=== PATIENT | female | born 1935 | race Caucasian/White ===

== ENCOUNTER → 2016-09-15 | Outpatient (CLI) | payer MEDICARE, BC ==
[~2016-09-15] MED LIST: ALTACE 5MG5 MG PO; ASPIR-LOW81 MG PO; ASPIR-LOX325 MG PO; ASPIRIN 32325 MG/TAB PO; ASPIRIN 81M81 MG/TA2 PO; CARDIZEM 90MG T90 MG PO; CARDIZEM CD 18180 MG PO; CARDIZEM CD180 MG PO; CEFTIN500 MG PO; COREG 25MG25 MG/TAB PO; COREG12.5 MG PO; COZAAR 50MG50 MG/TAB PO; CYANOCOBAL1000 MCG/M IM; DIOVAN HCT PO; EPA/GLA1 SGL PO; FERROUS SU325 MG/TAB PO; FISH OIL500 MG PO; FOLIC ACID; FOLIC ACID 40400 MCG PO; GLUCOPHAGE1000 MG PO; LANTUS100 U/ML SQ; LEVEMIR FLEXPEN SC; LEVEMIR100 U/ML SQ; LUMIGAN EYE GTTS OU; MINOCYCLIN100 MG/CAP PO; NIACIN 250250 MG/CAP PO; NORCO 325 MG-51 TAB PO; NORCO 325 MG-7.1 TAB PO; OCUVITE1 TA1; OCUVITE1 TA1 PO; PRILOSEC 20MG20 MG PO; PROAIR HFA0.09 MG/AC IH; ROXICODONE 55 MG/TAB PO; SYNTHROID0.075 MG/T PO; TIAZAC360 MG PO; TIROSINT100 MC1 PO; TIROSINT100 MCG PO; VITAMIN B121000 MC2 SL; VITAMIN C250250 MG PO; VITAMIN C500 MG PO; XALATAN EYE DROPS OP
== END ==
LOC: MC.RAD 13:57
DX: Z12.31 Encounter for screening mammogram for malignant neoplasm of breast (principal); D24.2 Benign neoplasm of left breast; D24.1 Benign neoplasm of right breast

== ENCOUNTER 2017-09-06 14:45 | Outpatient (RCR) | payer MEDICARE, BC | END 2017-10-24 | disposition home or self-care (01) | LOC: MKS.ESL.PT | DX: M54.41 Lumbago with sciatica, right side (principal) | CPT/HCPCS: G0283-GP; G8978-GP; G8979-GP ==

== ENCOUNTER → 2017-11-08 | Outpatient (CLI) | payer MEDICARE, BC | LOC: MHCPAIN 12:21 | DX: G89.29 Other chronic pain (principal); M47.817 Spondylosis without myelopathy or radiculopathy, lumbosacral region; M53.3 Sacrococcygeal disorders, not elsewhere classified; M48.061 Spinal stenosis, lumbar region without neurogenic claudication | CPT/HCPCS: G0463 ==

== ENCOUNTER → 2017-11-30 | Outpatient (CLI) | payer MEDICARE, BC | LOC: MHCPAIN 12:37 | DX: M47.27 Other spondylosis with radiculopathy, lumbosacral region (principal); M43.16 Spondylolisthesis, lumbar region; M48.07 Spinal stenosis, lumbosacral region | CPT/HCPCS: J1100; Q9967 ==

== ENCOUNTER → 2017-12-13 | Outpatient (CLI) | payer MEDICARE, BC | LOC: MHCPAIN 14:14 | DX: G89.29 Other chronic pain (principal); M47.817 Spondylosis without myelopathy or radiculopathy, lumbosacral region; M54.16 Radiculopathy, lumbar region; M53.3 Sacrococcygeal disorders, not elsewhere classified; M48.061 Spinal stenosis, lumbar region without neurogenic claudication | CPT/HCPCS: G0463 ==

== ENCOUNTER → 2018-01-03 | Outpatient (CLI) | payer MEDICARE, BC | LOC: MHCPAIN 12:53 | DX: M47.817 Spondylosis without myelopathy or radiculopathy, lumbosacral region (principal); M48.061 Spinal stenosis, lumbar region without neurogenic claudication; M43.16 Spondylolisthesis, lumbar region | CPT/HCPCS: J1100; Q9967 ==

== ENCOUNTER → 2018-03-14 | Outpatient (CLI) | payer MEDICARE, BC | LOC: MHCPAIN 12:53 | DX: G89.29 Other chronic pain (principal); M47.817 Spondylosis without myelopathy or radiculopathy, lumbosacral region; M54.16 Radiculopathy, lumbar region; M53.3 Sacrococcygeal disorders, not elsewhere classified; M43.16 Spondylolisthesis, lumbar region | CPT/HCPCS: G0463 ==

== ENCOUNTER → 2018-04-18 | Outpatient (CLI) | payer MEDICARE, BC | LOC: MHCPAIN 13:53 | DX: G89.29 Other chronic pain (principal); M47.817 Spondylosis without myelopathy or radiculopathy, lumbosacral region; M54.16 Radiculopathy, lumbar region; M53.3 Sacrococcygeal disorders, not elsewhere classified; M48.00 Spinal stenosis, site unspecified; M43.16 Spondylolisthesis, lumbar region | CPT/HCPCS: G0463 ==

== ENCOUNTER → 2018-04-30 | Outpatient (CLI) | payer MEDICARE, BC | LOC: COL.RAD 07:24 | DX: K57.30 Diverticulosis of large intestine without perforation or abscess without bleeding (principal); M51.36 Other intervertebral disc degeneration, lumbar region; M46.96 Unspecified inflammatory spondylopathy, lumbar region; J84.10 Pulmonary fibrosis, unspecified; R91.1 Solitary pulmonary nodule; K86.2 Cyst of pancreas; Z96.643 Presence of artificial hip joint, bilateral | CPT/HCPCS: Q9967 ==

== ENCOUNTER 2018-05-29 08:32 | Day surgery (SDC) | payer MEDICARE, BC ==
[~2018-05-29] VITALS: Ht 162.6 cm; Wt 98.5 kg
[2018-05-29 08:51] VITALS: BP 161/71; PULSE 56; TEMP 97.8
[2018-05-29] MEDS ORDERED: COREG 25MG25 MG/TAB PO (09:34)
[2018-05-29] MEDS ORDERED: PRILOSEC 20MG20 MG PO (09:35)
[2018-05-29] MEDS ORDERED: TIAZAC180 MG PO (09:36)
[2018-05-29] MEDS ORDERED: SYNTHROID0.088 MG/T PO (09:36)
[2018-05-29] MEDS ORDERED: LEVEMIR100 U/ML SQ (09:37)
[2018-05-29] MEDS ORDERED: GLUCOPHAGE500 MG/TAB PO (09:38)
[2018-05-29] MEDS ORDERED: BENTYL 10MG10 MG/CAP PO (09:39)
[2018-05-29] MEDS ORDERED: GLUCOPHAGE1000 MG PO (09:39)
[2018-05-29] MEDS ORDERED: ASPIRIN 81M81 MG/TA2 PO (09:40)
[2018-05-29 10:50] VITALS: BP 123/56; PULSE 53; TEMP 98.1
[2018-05-29 11:05] VITALS: BP 110/78; PULSE 54
[2018-05-29 11:20] VITALS: BP 121/64; PULSE 48
== END 2018-05-29 11:32 | disposition home or self-care (01) ==
LOC: SDCO 08:32
DX: R10.31 Right lower quadrant pain (principal); K59.09 Other constipation; R19.7 Diarrhea, unspecified; Z86.010 Personal history of colon polyps; K57.90 Diverticulosis of intestine, part unspecified, without perforation or abscess without bleeding; K63.89 Other specified diseases of intestine
CPT/HCPCS: J2250; J3010; J7030

== ENCOUNTER → 2018-07-18 | Outpatient (CLI) | payer MEDICARE, BC ==
[~2018-07-18] MED LIST changes: +BENTYL 10MG10 MG/CAP PO; +GLUCOPHAGE500 MG/TAB PO; +SYNTHROID0.088 MG/T PO; +TIAZAC180 MG PO
== END ==
LOC: MHCPAIN 13:23
DX: G89.29 Other chronic pain (principal); M47.817 Spondylosis without myelopathy or radiculopathy, lumbosacral region; M53.3 Sacrococcygeal disorders, not elsewhere classified; M48.00 Spinal stenosis, site unspecified; M43.16 Spondylolisthesis, lumbar region
CPT/HCPCS: G0463

== ENCOUNTER → 2018-07-26 | Outpatient (CLI) | payer MEDICARE, BC | LOC: MHCPAIN 09:26 | DX: M47.817 Spondylosis without myelopathy or radiculopathy, lumbosacral region (principal); M54.16 Radiculopathy, lumbar region | CPT/HCPCS: J1100; Q9967 ==

== ENCOUNTER → 2018-10-23 | Outpatient (CLI) | payer MEDICARE, BC | LOC: MHCPAIN 13:12 | DX: G89.29 Other chronic pain (principal); M47.817 Spondylosis without myelopathy or radiculopathy, lumbosacral region; M54.16 Radiculopathy, lumbar region; M53.3 Sacrococcygeal disorders, not elsewhere classified; M48.061 Spinal stenosis, lumbar region without neurogenic claudication | CPT/HCPCS: G0463 ==

== ENCOUNTER 2018-12-30 04:32 | Inpatient (IN) | payer MEDICARE, BC ==
[2018-12-30] VITALS (849 sets, daily range): BP systolic 125–184; BP diastolic 69–86; PULSE 59–68; TEMP 94.6–98.8; O2SAT 85–100
[~2018-12-30] VITALS: Ht 160 cm; Wt 101.3 kg
[2018-12-30 04:56] LABS: BASO # 0.1 (0.0-0.2); BASO % 0.4 % (0.0-2.0); EOS # 0.5 (0.0-0.7); EOS % 3.7 % (0-4.0); GRAN # 9.8 (1.4-6.5); GRAN % 68.3 % (42.2-75.2); HEMATOCRIT 41.5 % (37.0-47.0); HEMOGLOBIN 13.4 g/dl (12.5-16.0); LYMPH # 2.7 (1.2-3.4); LYMPH % 18.9 % (20.0-51.0); MEAN CELL VOLUME 90 fl (80.0-100.0); MEAN CORPUSCULAR HEMOGLOBIN 29 pg (27.0-31.0); MEAN CORPUSCULAR HGB CONC 32 g/dl (33.0-37.0); MEAN PLATELET VOLUME 10.6 fl (7.4-10.4); MONO # 1.2 (0.1-0.6); MONO % 8.1 % (1.7-9.3); PLATELET COUNT 325 K/mm3 (130-400); RED BLOOD COUNT 4.62 M/mm3 (4.10-5.30); REDCELL DISTRIBUTION WIDTH-CV 13.7 % (11.5-14.5)
[2018-12-30 05:01] LABS: INR 0.9 (0.8-3.0); PROTHROMBIN TIME 10.8 SECONDS (9.7-12.8)
[2018-12-30 05:04] LABS: PARTIAL THROMBOPLASTIN TIME 36.9 SECONDS (26.0-37.0)
[2018-12-30 05:16] LABS: ALANINE AMINOTRANSFERASE 19 U/L (9-52); ALBUMIN 4.5 gm/dL (3.5-5.0); ALKALINE PHOSPHATASE 76 U/L (50-136); ANION GAP 12 mmol/L (7-16); AST,SGOT 23 U/L (15-37); BILIRUBIN,TOTAL 0.3 mg/dL (0.0-1.0); BLOOD UREA NITROGEN 23 mg/dL (7-17); CALCIUM 10.5 mg/dL (8.4-10.2); CARBON DIOXIDE 22 mmol/L (22-30); CHLORIDE 111 mmol/L (98-107); CREATININE, serum 0.79 (0.52-1.25); GLUCOSE 52 mg/dL (74-106); POTASSIUM 3.9 mmol/L (3.4-5.0); SODIUM 145 mmol/L (137-145); TOTAL PROTEIN 8.2 gm/dL (6.4-8.2)
[2018-12-30] MEDS ORDERED: MOBIC15 MG PO (05:16)
[2018-12-30] MEDS ORDERED: PEPCID40 MG PO (05:16)
[2018-12-30 05:40] LABS: TROPONIN-I < 0.012 ng/mL (0.000-0.035)
[2018-12-30 05:46] LABS: THYROID STIMULATING HORMONE 0.949 uIU/mL (0.465-4.680)
[2018-12-30 06:53] LABS: COLLECTION METHOD CLEAN CATCH
[2018-12-30 06:59] LABS: MUCOUS Present /lpf; PH 5 (5-8); SQUAMOUS EPITHELIAL 0-2 /hpf; URINE APPEARANCE Clear; URINE BACTERIA None Seen /hpf; URINE BILIRUBIN Negative (NEGATIVE); URINE BLOOD Negative (NEGATIVE); URINE COLOR Yellow; URINE GLUCOSE 1+ (NEGATIVE); URINE KETONE Negative (NEGATIVE); URINE LEUKOCYTE ESTERASE Negative (NEGATIVE); URINE NITRATE Negative (NEGATIVE); URINE PROTEIN(semi-quant) Negative (NEGATIVE); URINE RBC 0-2 /hpf; URINE UROBILINOGEN Negative (NEGATIVE)
--- NOTE | 2018-12-30 07:55 | NUR ---
Patient admitted to ICU 2 from ED via stretcher. Moves self to bed. Alert/[place] x4. Denies needs at this time. [place] to room. Call light at side
[2018-12-30 08:14] LABS: CHOLESTEROL RISK RATIO 5.1
--- NOTE | 2018-12-30 08:30 | NUR ---
Capo warming blankets applied to patient, bilat knees and chest. BS checked. Dr. Fox here at bedside for rounds, new orders recieved at this time. Temp 35.1 per temp ingrid. WIll monitor.
--- NOTE | 2018-12-30 12:00 | NUR ---
Temp quintero shows temp 37.1, verified orally. Gaymar unit off at this time. 1230-temp remains WNL, wraps removed and covered with blanket. Will continue to monitor for hypothermia. Continue with BG checks as well. Patient continues to be A/O. Has eaten, and enc PO fluids. Denies further needs
[2018-12-30] MEDS ORDERED: PEPCID 20MG TAB20 MG PO (12:12)
[2018-12-30] MEDS ORDERED: OMEGA-3 1000 MG1 CAP PO (12:13)
[2018-12-30] MEDS ORDERED: GLUCOPHAGE500 MG/TAB PO ×2 (12:15→12:17)
--- NOTE | 2018-12-30 17:49 | NUR ---
Karl Branch APRN notified of increased BP. Request this RN to call Cardiology for orders. Updates given. 1756 Dr. Castillo notified of BP, orders recived.
--- NOTE | 2018-12-30 19:29 | NUR ---
Bedside report given to Pam BROOKS. Patient awake and alert, denies needs at this time.
--- NOTE | 2018-12-30 20:00 | NUR ---
Pt A&O x4, sitting in bed, denies any pain, VSS.
--- NOTE | 2018-12-30 23:50 | NUR ---
Pt states she's having difficulty sleeping. SCD's remain off and lights turned off to help pt get to sleep.
[2018-12-31] VITALS (92 sets, daily range): BP systolic 134–167; BP diastolic 62–83; PULSE 54–69; TEMP 97.8–98.6; O2SAT 94–100
[2018-12-31 05:18] LABS: ALBUMIN 3.2 gm/dL (3.5-5.0); BILIRUBIN,TOTAL 0.4 mg/dL (0.0-1.0); CALCIUM 8.9 mg/dL (8.4-10.2); CREATININE, serum 0.62 (0.52-1.25); POTASSIUM 4.1 mmol/L (3.4-5.0)
[2018-12-31 05:21] LABS: BASO % 0.2 % (0.0-2.0); EOS # 0.3 (0.0-0.7); EOS % 3.5 % (0-4.0); GRAN # 6.3 (1.4-6.5); GRAN % 66.6 % (42.2-75.2); HEMOGLOBIN 11.9 g/dl (12.5-16.0); LYMPH % 20.7 % (20.0-51.0); MEAN CELL VOLUME 88 fl (80.0-100.0); MEAN CORPUSCULAR HEMOGLOBIN 29 pg (27.0-31.0); MEAN CORPUSCULAR HGB CONC 33 g/dl (33.0-37.0); MEAN PLATELET VOLUME 10.9 fl (7.4-10.4); MONO # 0.8 (0.1-0.6); MONO % 8.8 % (1.7-9.3); PLATELET COUNT 252 K/mm3 (130-400); REDCELL DISTRIBUTION WIDTH-CV 13.7 % (11.5-14.5)
[2018-12-31 05:22] LABS: HEMATOCRIT 36.1 % (37.0-47.0)
--- NOTE | 2018-12-31 07:20 | NUR ---
Report recieved from Pam BROOKS. Patient sleeps at this time. Offers no s/s discomfort.
--- NOTE | 2018-12-31 07:50 | NUR ---
chemistry technologist at bedside for exam, patient tolerating well. Continues with K[place] veras 36.7/98.1. States "I sure feel better today."
--- NOTE | 2018-12-31 09:09 | NUR ---
SW met with the patient to discuss a discharge plan. The pt lives in [place] with her Mu. The pt does not use DME and reports independence with ADLs. The pt's PCP is Dr. Jackson. The pt receives her medications from [facility] and reports no difficulties obtaining her medications. The pt does have advanced directives in the EMR, but they are incomplete. SW to meet with the pt again to discuss advanced directives. The pt plans to return home upon discharge. SW will continue to follow for discharge recommendations and assist if needed.
--- NOTE | 2018-12-31 09:39 | NUR ---
Initial visit; Patient thanked Blending Machine Feeder for looking in on her and offering spiritual care and was especially thankful for prayer.
--- NOTE | 2018-12-31 19:00 | NUR ---
Report received from Paulette Fam RN. Pt resting in chair with visitor X1 at bedside and television on.
--- NOTE | 2018-12-31 19:15 | NUR ---
Report given to Manisha BROOKS
--- NOTE | 2018-12-31 20:00 | NUR ---
Pt assessment completed. Pt remains in chair at bedside. Verbal expression was made by pt to go upstairs this evening "because of the toilet in the middle of the room". Telemetry box was placed at this time with the assurance that this pt was the first to go upstairs this evening although an exact time is unknown. Pt reported bruising on right shoulder was caused by a Vitamin B injection.
--- NOTE | 2018-12-31 21:21 | NUR ---
Report received from Manisha BROOKS.
--- NOTE | 2018-12-31 21:25 | NUR ---
Phone report provided to Neida on medical floor.
--- NOTE | 2018-12-31 21:40 | NUR ---
Pt assisted with personal belongings off unit in a wheelchair by medical floor nurse Neida at this time.
--- NOTE | 2018-12-31 21:40 | NUR ---
Pt transported to medical bed via wheelchair with belongings. Pt amublated with standby assist from wheelchair to bed. Well tolerated by patient. Patients assessment is within normal limits. Respirations even and unlabored. Lungs clear. Abdomen soft, nontender. BS+. No edema noted. Pulses equal, strong bilaterally. VSS. Pt denies pain. Pt tucked into bed. Call light in reach. No needs noted. Will continue to monitor.
--- NOTE | 2018-12-31 23:20 | NUR ---
Patient ambulated into the hedrick and stated that her call light and bed was working. It was determined that the call light and bed were not functional. different call light tried which did not work either.
--- NOTE | 2018-12-31 23:30 | NUR ---
Pt is moved from room 311 to room 318 for patient safety. Call light in 318 is functional.
[2019-01-01 03:40] VITALS: BP 144/59; PULSE 60; TEMP 98.4
--- NOTE | 2019-01-01 03:40 | NUR ---
Pt resting in bed. Pt reports improvement in back pain with Tylenol. Pts blood sugar stable. VSS.
--- NOTE | 2019-01-01 06:02 | NUR ---
Pt resting this morning. Pt has had c/o back pain since coming to medical floor. Pt has chronic back issues and home Mobic is on hold. PRN Tylenol given. No other needs noted.
[2019-01-01 08:41] VITALS: BP 146/66; PULSE 60; TEMP 98.1
--- NOTE | 2019-01-01 10:52 | NUR ---
Completed assessment and medication administration; Accu-check completed late with aftermeal reading of 220; PT A&Ox4, HRRR, lungs CTA, PT offered prune juice to assist with full bowel movement; PT able to communicate all concerns and needs; PT reports mild LBP and not able to have a full bowel movement; PT able to return to a comfortable position in recliner with personal items in bed and call light within reach; No further concerns at time of exit. CDA
[2019-01-01] MEDS ORDERED: LEVEMIR100 U/ML SQ (11:26)
--- NOTE | 2019-01-01 13:42 | NUR ---
SW attended clinical rounds. Patient has been walking in the halls independently with her family. Patient does not require any home health services or post acute rehab. Patient will discharge home today.
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
--- NOTE | 2019-01-01 15:27 | NUR ---
PT and family escorted out of the building via wheelchair with aide staff. SHE[place]
== END 2019-01-01 15:15 | disposition home or self-care (01) | DRG 639 ==
LOC: COL.ER 04:32 → ICU 05:50 → MEDICAL 12-31 21:40
PROVIDERS: Emergency Medicine; Nurse Practitioner; ADMIT Hospitalist
DX: E11.649 Type 2 diabetes mellitus with hypoglycemia without coma (principal); I10 Essential (primary) hypertension; E03.9 Hypothyroidism, unspecified; F45.8 Other somatoform disorders; R68.0 Hypothermia, not associated with low environmental temperature; I44.0 Atrioventricular block, first degree; K21.9 Gastro-esophageal reflux disease without esophagitis; E78.5 Hyperlipidemia, unspecified; Z79.84 Long term (current) use of oral hypoglycemic drugs; Z79.82 Long term (current) use of aspirin; Z96.653 Presence of artificial knee joint, bilateral; Z96.641 Presence of right artificial hip joint; Z96.698 Presence of other orthopedic joint implants; Z88.3 Allergy status to other anti-infective agents
CPT/HCPCS: 99223-AI; 99232-AI; 99239; J1650; J1815; J7030

== ENCOUNTER → 2019-01-30 | Outpatient (CLI) | payer MEDICARE, BC ==
[~2019-01-30] MED LIST changes: +MOBIC15 MG PO; +OMEGA-3 1000 MG1 CAP PO; +PEPCID 20MG TAB20 MG PO; +PEPCID40 MG PO
== END ==
LOC: MHCPAIN 14:20
DX: G89.29 Other chronic pain (principal); M47.817 Spondylosis without myelopathy or radiculopathy, lumbosacral region; M54.16 Radiculopathy, lumbar region; M53.3 Sacrococcygeal disorders, not elsewhere classified; M48.01 Spinal stenosis, occipito-atlanto-axial region
CPT/HCPCS: G0463

== ENCOUNTER → 2019-02-07 | Outpatient (CLI) | payer MEDICARE, BC | LOC: MHCPAIN 14:00 | DX: M47.817 Spondylosis without myelopathy or radiculopathy, lumbosacral region (principal); M54.16 Radiculopathy, lumbar region | CPT/HCPCS: J1100; Q9967 ==

== ENCOUNTER 2019-02-28 13:22 | Emergency (ER) | payer MEDICARE, BC ==
[~2019-02-28] VITALS: Ht 162.6 cm; Wt 97.7 kg
[2019-02-28 13:30] VITALS: TEMP 97.9
[2019-02-28] MEDS ORDERED: NORCO 325 MG-51 TAB PO (14:09)
[2019-02-28] MEDS ORDERED: NEURONTIN300 MG/CAP PO (14:09)
[2019-02-28] MEDS ORDERED: LIDODERM 5% PATC1 EA TP (14:09)
[2019-02-28] MEDS ORDERED: PREDNISONE20 MG PO (14:09)
[2019-02-28 14:33] VITALS: BP 155/63; PULSE 78
== END 2019-02-28 14:44 | disposition home or self-care (01) ==
LOC: COL.ER 13:22
DX: M54.5 Low back pain (principal); E11.9 Type 2 diabetes mellitus without complications; I10 Essential (primary) hypertension; Z90.89 Acquired absence of other organs; Z79.82 Long term (current) use of aspirin

== ENCOUNTER 2019-03-07 15:07 | Emergency (ER) | payer MEDICARE, BC ==
[~2019-03-07] VITALS: Ht 162.6 cm; Wt 100.0 kg
[~2019-03-07 15:07] MED LIST changes: +LIDODERM 5% PATC1 EA TP; +NEURONTIN300 MG/CAP PO; +PREDNISONE20 MG PO
[2019-03-07 15:26] VITALS: TEMP 97.9
[2019-03-07 18:26] LABS: ALANINE AMINOTRANSFERASE 10 U/L (9-52); ALBUMIN 4.4 gm/dL (3.5-5.0); ALKALINE PHOSPHATASE 69 U/L (50-136); ANION GAP 13 mmol/L (7-16); AST,SGOT 20 U/L (15-37); BILIRUBIN,TOTAL 0.2 mg/dL (0.0-1.0); BLOOD UREA NITROGEN 23 mg/dL (7-17); CALCIUM 9.9 mg/dL (8.4-10.2); CARBON DIOXIDE 21 mmol/L (22-30); CHLORIDE 104 mmol/L (98-107); GLUCOSE 155 mg/dL (74-106); POTASSIUM 4.5 mmol/L (3.4-5.0); SODIUM 138 mmol/L (137-145); TOTAL PROTEIN 7.5 gm/dL (6.4-8.2)
[2019-03-07 18:27] LABS: BASO % 0.2 % (0.0-2.0); EOS # 0.2 (0.0-0.7); EOS % 1.5 % (0-4.0); GRAN # 10.2 (1.4-6.5); GRAN % 74.5 % (42.2-75.2); HEMATOCRIT 41.8 % (37.0-47.0); HEMOGLOBIN 13.7 g/dl (12.5-16.0); LYMPH # 2.3 (1.2-3.4); LYMPH % 16.8 % (20.0-51.0); MEAN CELL VOLUME 90 fl (80.0-100.0); MEAN CORPUSCULAR HEMOGLOBIN 29 pg (27.0-31.0); MEAN CORPUSCULAR HGB CONC 33 g/dl (33.0-37.0); MONO # 0.9 (0.1-0.6); MONO % 6.3 % (1.7-9.3); PLATELET COUNT 366 K/mm3 (130-400); RED BLOOD COUNT 4.67 M/mm3 (4.10-5.30); REDCELL DISTRIBUTION WIDTH-CV 14.4 % (11.5-14.5)
[2019-03-07 18:31] LABS: C-REACTIVE PROTEIN 0.5 mg/dL (0.0-0.9)
[2019-03-07 18:35] LABS: TROPONIN-I < 0.012 ng/mL (0.000-0.035)
[2019-03-07 19:05] LABS: COLLECTION METHOD CLEAN CATCH
[2019-03-07 19:12] LABS: MUCOUS Present /lpf; PH 5 (5-8); URINE APPEARANCE Hazy; URINE BACTERIA Rare /hpf; URINE BILIRUBIN Negative (NEGATIVE); URINE BLOOD Negative (NEGATIVE); URINE COLOR Yellow; URINE GLUCOSE Negative (NEGATIVE); URINE KETONE Negative (NEGATIVE); URINE LEUKOCYTE ESTERASE Negative (NEGATIVE); URINE NITRATE Negative (NEGATIVE); URINE PROTEIN(semi-quant) Negative (NEGATIVE); URINE RBC 0-2 /hpf; URINE UROBILINOGEN Negative (NEGATIVE)
[2019-03-07] MEDS ORDERED: NORCO 325 MG-51 TAB PO (20:32)
[2019-03-07 21:06] VITALS: BP 138/90; PULSE 78
== END 2019-03-07 22:52 | disposition home or self-care (01) ==
LOC: COL.ER 15:07
PROVIDERS: Nurse Practitioner
DX: M25.562 Pain in left knee (principal); E11.9 Type 2 diabetes mellitus without complications; I10 Essential (primary) hypertension; E03.9 Hypothyroidism, unspecified; Z79.4 Long term (current) use of insulin; Z79.82 Long term (current) use of aspirin
CPT/HCPCS: J2270

== ENCOUNTER → 2019-03-11 | Outpatient (CLI) | payer MEDICARE, BC | LOC: MHCPAIN 14:54 | DX: G89.29 Other chronic pain (principal); M47.817 Spondylosis without myelopathy or radiculopathy, lumbosacral region; M54.16 Radiculopathy, lumbar region; M53.3 Sacrococcygeal disorders, not elsewhere classified; M48.061 Spinal stenosis, lumbar region without neurogenic claudication | CPT/HCPCS: G0463 ==

== ENCOUNTER → 2019-03-14 | Outpatient (CLI) | payer MEDICARE, BC | LOC: MHCPAIN 11:24 | DX: M47.817 Spondylosis without myelopathy or radiculopathy, lumbosacral region (principal); M54.16 Radiculopathy, lumbar region | CPT/HCPCS: J1100; Q9967 ==

== ENCOUNTER → 2019-03-27 | Outpatient (CLI) | payer MEDICARE, BC | LOC: MHCPAIN 13:33 | DX: G89.29 Other chronic pain (principal); M47.817 Spondylosis without myelopathy or radiculopathy, lumbosacral region; M54.16 Radiculopathy, lumbar region; M53.3 Sacrococcygeal disorders, not elsewhere classified | CPT/HCPCS: G0463 ==

== ENCOUNTER → 2019-04-02 | Outpatient (CLI) | payer MEDICARE, BC | LOC: COL.RAD 08:40 | DX: M25.552 Pain in left hip (principal) | CPT/HCPCS: J3301 ==

== ENCOUNTER → 2019-06-26 | Outpatient (CLI) | payer MEDICARE, BC | LOC: MHCPAIN 13:55 | DX: M47.817 Spondylosis without myelopathy or radiculopathy, lumbosacral region (principal); M54.16 Radiculopathy, lumbar region | CPT/HCPCS: G0463 ==

== ENCOUNTER → 2019-07-16 | Outpatient (CLI) | payer MEDICARE, BC | LOC: COL.RAD 10:00 | DX: M48.061 Spinal stenosis, lumbar region without neurogenic claudication (principal); M51.36 Other intervertebral disc degeneration, lumbar region; M43.16 Spondylolisthesis, lumbar region; M46.86 Other specified inflammatory spondylopathies, lumbar region; M47.817 Spondylosis without myelopathy or radiculopathy, lumbosacral region ==

== ENCOUNTER 2019-07-23 09:15 | Outpatient (RCR) | payer MEDICARE, BC | END 2019-07-23 16:49 | disposition home or self-care (01) | LOC: WSPT 09:15 | DX: M47.26 Other spondylosis with radiculopathy, lumbar region (principal) ==

== ENCOUNTER 2020-09-27 11:41 | Inpatient (IN) | payer MEDICARE, BC ==
[~2020-09-27] VITALS: Ht 162.7 cm; Wt 96.3 kg
[~2020-09-27 11:41] MED LIST changes: -OCUVITE1 TA1
[2020-09-27 12:39] LABS: BASO # 0.1 (0.0-0.2); BASO % 0.6 % (0.0-2.0); EOS # 0.2 (0.0-0.7); EOS % 2.5 % (0-4.0); GRAN % 73.1 % (42.2-75.2); HEMATOCRIT 37.2 % (37.0-47.0); HEMOGLOBIN 12.1 g/dl (12.5-16.0); LYMPH # 1.5 (1.2-3.4); MEAN CELL VOLUME 90 fl (80.0-100.0); MEAN CORPUSCULAR HEMOGLOBIN 29 pg (27.0-31.0); MEAN CORPUSCULAR HGB CONC 33 g/dl (33.0-37.0); MEAN PLATELET VOLUME 10.5 fl (7.4-10.4); MONO # 0.7 (0.1-0.6); MONO % 7.3 % (1.7-9.3); PLATELET COUNT 312 K/mm3 (130-400); RED BLOOD COUNT 4.15 M/mm3 (4.10-5.30); REDCELL DISTRIBUTION WIDTH-CV 13.3 % (11.5-14.5)
[2020-09-27 12:44] LABS: PROTHROMBIN TIME 11.2 SECONDS (9.7-12.8)
[2020-09-27 12:47] LABS: ALANINE AMINOTRANSFERASE 23 U/L (4-34); ALKALINE PHOSPHATASE 62 U/L (50-136); ANION GAP 11 mmol/L (7-16); AST,SGOT 26 U/L (15-37); BILIRUBIN,TOTAL 0.5 mg/dL (0.0-1.0); BLOOD UREA NITROGEN 17 mg/dL (7-17); CALCIUM 9.2 mg/dL (8.4-10.2); CARBON DIOXIDE 17 mmol/L (22-30); CHLORIDE 108 mmol/L (98-107); CREATININE, serum 0.68 (0.52-1.25); GLUCOSE 151 mg/dL (74-106); POTASSIUM 4.1 mmol/L (3.4-5.0); SODIUM 135 mmol/L (137-145)
[2020-09-27 12:58] LABS: TROPONIN-I < 0.012 ng/mL (0.000-0.035)
[2020-09-27] MEDS ORDERED: BENICAR 20MG TA20 MG PO (13:50)
[2020-09-27] MEDS ORDERED: ULTRAM 50MG TAB50 MG PO (13:51)
[2020-09-27] MEDS ORDERED: GLUCOPHAGE500 MG/TAB PO ×2 (13:51→13:52)
[2020-09-27 15:17] VITALS: BP 145/61; PULSE 57; TEMP 97.8
--- NOTE | 2020-09-27 15:34 | NUR ---
Pt admitted to medical unit rm 351 from ED, A&O x 4, reports slight chest pressure that is improved from arrival. IVF's infusing by gravity through right AC site without s/s of complications. POC and visitor policy reviewed with pt and pt's [id number] who is at bedside. No further needs reported. Call light in reach.
[2020-09-27] MEDS ORDERED: NEURONTIN300 MG/CAP PO (16:12)
--- NOTE | 2020-09-27 19:10 | NUR ---
Report with TODD Barboza. Pt resting in bed, verbalizes understanding of POC, denies further needs. Call light in reach.
--- NOTE | 2020-09-27 20:30 | NUR ---
Initial shift assessment done- denies chest pain, denies SOB, IV fluids of NS at 30cc/hr,,Tele on, Up to bathroom with one assist-tolerated well, gait steady, voiding without problems,, will have a blood sugar check tonight, states will eat a small snack for HS-- will then be NPO after MN for lexiscan in AM
[2020-09-27 20:52] VITALS: BP 151/61; PULSE 61; TEMP 97.4
--- NOTE | 2020-09-27 21:15 | NUR ---
Blood sugar 151, will give the Levimir as ordered, pt did eat a small HS snack- pt will be NPO after MN so did not think the short acting was necessary- she does not take it at home-
[2020-09-28] VITALS (13 sets, daily range): BP systolic 130–165; BP diastolic 60–90; PULSE 59–98; TEMP 97.4–98.3
--- NOTE | 2020-09-28 05:40 | NUR ---
Quiet night- no chest pain-- did sleep for a few hours, Up to bathroom every 2 hours to void- IV fluids of NS at 30cc/hr,, Tele on, NPO since ZAINA,VSS
[2020-09-28 06:26] LABS: TROPONIN-I < 0.012 ng/mL (0.000-0.035)
[2020-09-28 06:27] LABS: ANION GAP 8 mmol/L (7-16); BLOOD UREA NITROGEN 12 mg/dL (7-17); CARBON DIOXIDE 21 mmol/L (22-30); CHLORIDE 110 mmol/L (98-107); CHOLESTEROL 206 mg/dL (120-200); CREATININE, serum 0.66 (0.52-1.25); GLUCOSE 138 mg/dL (74-106); HDL CHOLESTEROL 41 mg/dL; LDL CHOLESTEROL 138 mg/dL; MAGNESIUM 1.9 mg/dL (1.6-2.3); SODIUM 139 mmol/L (137-145); TRIGLYCERIDE 133 mg/dL
--- NOTE | 2020-09-28 09:25 | NUR ---
NPO THIS AM FOR NUC MED. STILL HAS C/O "TIGHTNESS" AROUND MIDSECTION RATING AT 2/10. IVF AND TELE OFF WHEN LEAVING FLOOR - OFF FLOOR AT 0900 TO NUCLEAR MED
--- NOTE | 2020-09-28 10:35 | NUR ---
PATIENT BACK TO ROOM.
--- NOTE | 2020-09-28 14:07 | NUR ---
Weight Training Instructor met with patient to discuss discharge planning. Patient lives outside of [place] with her , Mu (ph#[phone]). Patient sees Dr. Jackson for primary care and obtains medications from [facility] with no difficulties. Patient uses a walker at home and a cane when she's out in the community. Patient reports she is normally independent with ADLS and plans to return home upon discharge. Patient has Advance Directives in EMR which designate her son, Javy (ph#[phone]). SW contacted Javy to review discharge plan. Javy has no questions or concerns at this time.
--- NOTE | 2020-09-28 17:10 | NUR ---
PATIENT HEART CATH POSTPONED TO 09/29; DIET REINSTATED FOR DINNER, NPO AFTER MN. PATIENT INFORMED AND DINNER ORDERED. N/C OR NEEDS AT THIS TIME
--- NOTE | 2020-09-28 19:05 | NUR ---
Received report from Brandi. Patient awake in bed. She just came back from the restroom. She denies pain. Informed patient of NPO by midight. She verbalizes understanding.
--- NOTE | 2020-09-28 20:30 | NUR ---
Assesment done. Patient denies pain. Blood glucose at 166mg/dl. Offered patient if she wants some snacks before she sleeps just to prevent hypoglycemia in the morning, she said she received snacks last night and wants to have tonight at 2200H. With IV on right AC infusing NS at 30ml/hr.
[2020-09-29] VITALS (176 sets, daily range): BP systolic 121–153; BP diastolic 63–88; PULSE 58–71; TEMP 97.8–98.1; O2SAT 88–97
--- NOTE | 2020-09-29 06:06 | NUR ---
Patient reports able to sleep a bit. She states she still have chest tightness but tolerable. Maintained on NPO. Morning med given with sips of water.
--- NOTE | 2020-09-29 07:10 | NUR ---
Report with TODD Carmen. Pt resting in bed, A&O x 3, denies pain or needs, verbalizes understanding of POC. IVF's infusing per orders. Call light in reach.
--- NOTE | 2020-09-29 08:15 | NUR ---
Assessment complete. Pt sitting up on side of bed, A&O x 4, reports continued slight pressure to chest. IVF's infusing per orders to right AC site without s/s of complications. POC for procedure reviewed with pt. Pt emotional d/t concerns about her at home by himself. Pt does have a son who is checking on him but she is ready to get back home to him. No further needs reported. Call light in reach.
--- NOTE | 2020-09-29 10:00 | NUR ---
Pt to canvas shop laborer for procedure via bed.
[2020-09-29 16:09] LABS: PARTIAL THROMBOPLASTIN TIME 49.2 SECONDS (26.0-37.0)
--- NOTE | 2020-09-29 17:11 | NUR ---
PT being transferred via [facility] to . Report given to early childhood specialist. 9ml of air left in TR band and 40 cc left in safe guard on right groin. PT is alert and oriented with out complaint. PT left unit at 1711.
== END 2020-09-29 17:11 | disposition short-term general hospital (02) | DRG 287 ==
LOC: COL.ER 11:41 → MEDICAL 14:39 → ICU 09-29 14:48
PROVIDERS: Physician Assistant; ADMIT Internal Medicine
PROC: B2111ZZ Fluoroscopy of Multiple Coronary Arteries using Low Osmolar Contrast (ICD-10-PCS; 2020-09-28)
PROC: 4A023N7 Measurement of Cardiac Sampling and Pressure, Left Heart, Percutaneous Approach (ICD-10-PCS; principal; 2020-09-29)
DX: I25.110 Atherosclerotic heart disease of native coronary artery with unstable angina pectoris (principal); E87.2 Acidosis; I50.32 Chronic diastolic (congestive) heart failure; I11.0 Hypertensive heart disease with heart failure; E11.9 Type 2 diabetes mellitus without complications; E03.9 Hypothyroidism, unspecified; K21.9 Gastro-esophageal reflux disease without esophagitis; E78.5 Hyperlipidemia, unspecified; Z20.822 Contact with and (suspected) exposure to COVID-19; Z96.653 Presence of artificial knee joint, bilateral; Z96.641 Presence of right artificial hip joint; Z79.82 Long term (current) use of aspirin; Z79.891 Long term (current) use of opiate analgesic; Z79.4 Long term (current) use of insulin; Z88.8 Allergy status to other drugs, medicaments and biological substances
CPT/HCPCS: OP; 99239; A9500; C1760; C1769; C1887; C1894; G0378; J0583; J1644; J1650; J1815; J2250; J2270; J2785; J3010; J7030; Q9967

== ENCOUNTER 2020-10-12 02:18 | Observation (INO) | payer MEDICARE, BC ==
[2020-10-12] VITALS (259 sets, daily range): BP systolic 113–140; BP diastolic 50–87; PULSE 62–74; TEMP 98–98.7; O2SAT 93–99
[~2020-10-12] VITALS: Ht 162.6 cm; Wt 95.0 kg
[~2020-10-12 02:18] MED LIST changes: +BENICAR 20MG TA20 MG PO; +ULTRAM 50MG TAB50 MG PO
[2020-10-12 02:39] LABS: BASO # 0.1 (0.0-0.2); BASO % 0.5 % (0.0-2.0); EOS # 0.5 (0.0-0.7); GRAN # 6.1 (1.4-6.5); LYMPH # 1.9 (1.2-3.4); MEAN CELL VOLUME 91 fl (80.0-100.0); MEAN CORPUSCULAR HGB CONC 31 g/dl (33.0-37.0); MEAN PLATELET VOLUME 9.7 fl (7.4-10.4); MONO # 0.6 (0.1-0.6); MONO % 6.9 % (1.7-9.3); PLATELET COUNT 418 K/mm3 (130-400); RED BLOOD COUNT 3.22 M/mm3 (4.10-5.30); REDCELL DISTRIBUTION WIDTH-CV 14.1 % (11.5-14.5)
[2020-10-12 02:41] LABS: HEMATOCRIT 29.2 % (37.0-47.0); HEMOGLOBIN 9.1 g/dl (12.5-16.0); MEAN CORPUSCULAR HEMOGLOBIN 28 pg (27.0-31.0)
[2020-10-12 02:42] LABS: PROTHROMBIN TIME 11.7 SECONDS (9.7-12.8)
[2020-10-12 02:44] LABS: PARTIAL THROMBOPLASTIN TIME 30.6 SECONDS (26.0-37.0)
[2020-10-12 02:45] LABS: ALANINE AMINOTRANSFERASE 13 U/L (4-34); ALBUMIN 3.5 gm/dL (3.5-5.0); ALKALINE PHOSPHATASE 47 U/L (50-136); ANION GAP 10 mmol/L (7-16); AST,SGOT 21 U/L (15-37); BILIRUBIN,TOTAL 0.3 mg/dL (0.0-1.0); BLOOD UREA NITROGEN 17 mg/dL (7-17); CALCIUM 8.8 mg/dL (8.4-10.2); CARBON DIOXIDE 19 mmol/L (22-30); CHLORIDE 108 mmol/L (98-107); CREATININE, serum 0.79 (0.52-1.25); GLUCOSE 155 mg/dL (74-106); LIPASE 87 U/L (23-300); POTASSIUM 3.9 mmol/L (3.4-5.0); SODIUM 137 mmol/L (137-145); TOTAL PROTEIN 6.5 gm/dL (6.4-8.2)
[2020-10-12] MEDS ORDERED: NORVASC 5MG5 MG/TAB PO (02:49)
[2020-10-12] MEDS ORDERED: IMDUR 30MG30 MG/TAB PO (02:50)
[2020-10-12] MEDS ORDERED: PLAVIX 75MG TAB75 MG PO (02:50)
[2020-10-12] MEDS ORDERED: LEVEMIR FLEX100 U/ML SQ (02:51)
[2020-10-12] MEDS ORDERED: GLUCOPHAGE500 MG/TAB PO (02:51)
[2020-10-12] MEDS ORDERED: ULTRAM 50MG TAB50 MG PO (02:52)
[2020-10-12] MEDS ORDERED: BENICAR 20MG TA20 MG PO (02:52)
[2020-10-12] MEDS ORDERED: ASPIRIN 81M81 MG/TA2 PO (02:53)
[2020-10-12] MEDS ORDERED: VITAMIN B11000 MCG/M IM (02:54)
[2020-10-12] MEDS ORDERED: ZETIA 10MG TAB10 MG PO (02:54)
[2020-10-12 02:59] LABS: TROPONIN-I < 0.012 ng/mL (0.000-0.035)
--- NOTE | 2020-10-12 05:16 | NUR ---
Pt arrived to ICU room 7 via cart with PATRICE Almendarez RN. Pt able to transfer from the cart to the ICU bed with SBA. Pt oriented to room and call light system. Pt is now sitting in the bed and she denies further needs. Call light within reach.
[2020-10-12 05:32] LABS: MAGNESIUM 1.9 mg/dL (1.6-2.3)
--- NOTE | 2020-10-12 07:00 | NUR ---
RECEIVED REPORT FROM TODD SHI. PT ON RA. VSS. SEE GTT FLOWSHEET. DENIES ANY CP. PT STATES CHEST IS A LITTLE TIGHT WHEN SHE TAKES A DEEP BREATH. NO OTHER COMPLAINTS. CALL LIGHT WITHIN REACH.
--- NOTE | 2020-10-12 07:16 | NUR ---
Bedside shift report given to TODD Gómez.
--- NOTE | 2020-10-12 10:05 | NUR ---
DR APODACA AT BEDSIDE FOR ASSESSMENT AND DISCUSSING POC WITH PT.
--- NOTE | 2020-10-12 10:20 | NUR ---
Lead Die Molder met with patient to discuss discharge planning. 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 Patient reports that while she is in the hospital, her son Javy (ph#[phone]) is helping out Mu at home. Patient sees Dr. Jackson for primary care and believes she last saw Dr. Jackson on , 10/08/20. Patient was recently hospitalized here from 09/27-09/29. Patient states she filled all her discharge medications and took them as prescribed. Patient uses a walker in the home and a cane when she's out in the community. Patient reports independence with ADLS. Patient has DPOA-HC in EMR which designates her son, Javy. SW contacted Javy to review discharge plan. Javy is in agreement with discharge home as long as patient is feeling up to it. Plan will be discharge home at this time.
--- NOTE | 2020-10-12 14:14 | NUR ---
REPORT GIVEN TO TODD BEAUCHAMP ON MEDICAL. PT TO [facility] VIA WC TO 315. ALL PERSONAL BELONGINGS SENT WITH PT.
--- NOTE | 2020-10-12 18:55 | NUR ---
Pt rested well after arriving to room 315, she is A/O x4. Her breathing is even and unlabored on RA. Pt reports dull pain to chest around the bra line. States this is unchanged. No N/V. Heparin infusing without issues. Will continue to monitor.
--- NOTE | 2020-10-12 21:45 | NUR ---
PATIENT ALERT AND PLESANT. HAS N/C OF PAIN BUT STATES SHE HAS A "TIGHTNESS" ACCROSS HER UPPER ABDOMEN THAT HAS BEEN PRESENT FOR MANY WEEKS. NO C/O NAUSEA OR DIZZINESS. NO NEEDS EXPRESED AT THIS TIME
[2020-10-13] VITALS (7 sets, daily range): BP systolic 106–148; BP diastolic 43–69; PULSE 62–76; TEMP 97.2–98.3
--- NOTE | 2020-10-13 06:31 | NUR ---
PATIENT HAD VERY RESTFUL NIGHT, UP TO BR X2 IN NIGHT. NO C/O PAIN OR SOB. NO NEEDS EXPRESSED
--- NOTE | 2020-10-13 06:45 | NUR ---
Lying in bed with eyes open. Alert and oriented x4. Denies pain. Patient explains that she hopes to go home today, [id number] would be the one to pick her up if she is discharged. Patient will order breakfast. Denies additional needs at this time.
--- NOTE | 2020-10-13 08:00 | NUR ---
Pt eatimg breakfast. Shift assessment complete. Pt c/o tightness below breast pain is a 2/. telemetry on. Primary nurse notified. IV infusing of heprin in right arm. INT in right hand no redness.
--- NOTE | 2020-10-13 09:12 | NUR ---
Initial visit; Patient thanked Groundskeeping Maintenance for looking in on her and offering prayer and God's blessings.
[2020-10-13 10:38] LABS: BASO # 0.1 (0.0-0.2); BASO % 0.7 % (0.0-2.0); EOS # 0.3 (0.0-0.7); EOS % 3.9 % (0-4.0); GRAN # 5.2 (1.4-6.5); GRAN % 61.6 % (42.2-75.2); HEMATOCRIT 32.1 % (37.0-47.0); HEMOGLOBIN 10.1 g/dl (12.5-16.0); LYMPH # 2.3 (1.2-3.4); LYMPH % 26.8 % (20.0-51.0); MEAN CELL VOLUME 92 fl (80.0-100.0); MEAN CORPUSCULAR HEMOGLOBIN 29 pg (27.0-31.0); MEAN CORPUSCULAR HGB CONC 32 g/dl (33.0-37.0); MEAN PLATELET VOLUME 10.9 fl (7.4-10.4); MONO # 0.6 (0.1-0.6); MONO % 6.5 % (1.7-9.3); PLATELET COUNT 438 K/mm3 (130-400); RED BLOOD COUNT 3.51 M/mm3 (4.10-5.30); REDCELL DISTRIBUTION WIDTH-CV 14.3 % (11.5-14.5)
[2020-10-13 10:46] LABS: CALCIUM 9.5 mg/dL (8.4-10.2); CREATININE, serum 0.68 (0.52-1.25); POTASSIUM 4.7 mmol/L (3.4-5.0)
--- NOTE | 2020-10-13 12:11 | NUR ---
Lying in bed with eyes open. Denies pain. Is finally having bowel movements, some discomfort to left lower side from having stools. Hemorrhoids are flared a little bit as she has had to strain from being constipated. Patient informed of medications added to med regimen. Patient says that Dr. Abreu wants her to stay overnight. Has ordered lunch but requests that it come around 1330. Denies additional needs at this time.
--- NOTE | 2020-10-13 16:07 | NUR ---
Sitting up in chair visiting with daughter in law. Patient requests INT to right AC be dc'd due to it causing her some discomfort. IV dc'd with all intact. Patient will order dinner to be delivered at later time. Denies additional needs.
--- NOTE | 2020-10-13 19:52 | NUR ---
PATIENT ALERT AND RESTING IN BED, STATES SHE FEELS GOOD. STATES SHE WAS ABLE TOO TAKE A WALK THIS AFTERNOON AND IS HOPEFUL TO GO HOME TOMORROW. N/C PAIN OR DISCOMFORT, STATES ABDOMINAL PAIN IS GONE. NO NEEDS OR REQUESTS AT THIS TIME.
[2020-10-14 03:38] VITALS: BP 147/74; PULSE 68; TEMP 98
--- NOTE | 2020-10-14 05:52 | NUR ---
Patient had very restful night, up to BR 2x without difficulty. Patient anxious to go home today. Offers n/c of pain or any needs.
[2020-10-14 06:05] LABS: HEMOGLOBIN 10.1 g/dl (12.5-16.0); MEAN CELL VOLUME 90 fl (80.0-100.0); MEAN CORPUSCULAR HEMOGLOBIN 29 pg (27.0-31.0); MEAN CORPUSCULAR HGB CONC 32 g/dl (33.0-37.0); MEAN PLATELET VOLUME 9.8 fl (7.4-10.4); PLATELET COUNT 413 K/mm3 (130-400); REDCELL DISTRIBUTION WIDTH-CV 14.2 % (11.5-14.5)
[2020-10-14 06:17] LABS: HEMATOCRIT 31.4 % (37.0-47.0)
--- NOTE | 2020-10-14 06:45 | NUR ---
Lying in bed with eyes open. Alert and oriented x4. Denies pain. Patient is hopeful to go home today, feels as if she is good to go. Denies additional needs at this time.
--- NOTE | 2020-10-14 07:00 | NUR ---
Shift assessment complete. Pt resting in bed. Telemetry on, HR regular. INT intact, no redness noted. No complaints of chest pain at this time. Call light within reach.
[2020-10-14 07:30] VITALS: BP 143/77; PULSE 68; TEMP 97.8
[2020-10-14 08:04] LABS: CALCIUM 9.8 mg/dL (8.4-10.2); CREATININE, serum 0.8 (0.52-1.25); POTASSIUM 4.5 mmol/L (3.4-5.0)
--- NOTE | 2020-10-14 10:22 | NUR ---
Spinning Machine Operator attended clinical rounds with the team. The patient is independent in her room.
[2020-10-14] MEDS ORDERED: RANEXA 500MG T500 MG PO (10:33)
[2020-10-14] MEDS ORDERED: IMDUR 60MG60 MG/TAB PO (10:34)
[2020-10-14] MEDS ORDERED: TOPROL XL 25MG25 MG PO (10:35)
[2020-10-14 10:53] VITALS: BP 133/69; PULSE 72; TEMP 97.9
--- NOTE | 2020-10-14 12:32 | NUR ---
Review all discharge instructions with the patient. Questions answered. Patient verbalizes understanding to all and signs discharge paperwork. Discharge packet provided to the patient. Patient will use call light when daughter in law is at the ER entrance to pick her up. Denies needs at this time.
--- NOTE | 2020-10-14 13:43 | NUR ---
Patient calls and says that her daughter in law is at ER entrance to pick her up. Patient assisted out to POV with all belongings by two MEDICAL REIMBURSEMENT MANAGER students.
== END 2020-10-14 13:43 | disposition home or self-care (01) ==
LOC: COL.ER 02:18 → ICU 03:46 → MEDICAL 14:33
PROVIDERS: Emergency Medicine; Nurse Practitioner Family; Physician Assistant; ADMIT Family Medicine
DX: I25.10 Atherosclerotic heart disease of native coronary artery without angina pectoris (principal); I11.0 Hypertensive heart disease with heart failure; D64.9 Anemia, unspecified; E87.2 Acidosis; I50.30 Unspecified diastolic (congestive) heart failure; E11.9 Type 2 diabetes mellitus without complications; E03.9 Hypothyroidism, unspecified; Z79.82 Long term (current) use of aspirin; Z79.890 Hormone replacement therapy; Z95.5 Presence of coronary angioplasty implant and graft; Z79.4 Long term (current) use of insulin; Z79.899 Other long term (current) drug therapy; Z88.8 Allergy status to other drugs, medicaments and biological substances
CPT/HCPCS: 99232-AI; 99239; G0378; J1644; J1815; J7030

== ENCOUNTER 2020-11-12 09:00 | Emergency (ER) | payer MEDICARE, BC ==
[~2020-11-12] VITALS: Ht 162.6 cm; Wt 90.9 kg
[~2020-11-12 09:00] MED LIST changes: +IMDUR 30MG30 MG/TAB PO; +IMDUR 60MG60 MG/TAB PO; +LEVEMIR FLEX100 U/ML SQ; +NORVASC 5MG5 MG/TAB PO; +PLAVIX 75MG TAB75 MG PO; +RANEXA 500MG T500 MG PO; +TOPROL XL 25MG25 MG PO; +VITAMIN B11000 MCG/M IM; +ZETIA 10MG TAB10 MG PO
[2020-11-12 09:05] VITALS: TEMP 97.2
[2020-11-12 09:56] LABS: BASO % 0.6 % (0.0-2.0); EOS # 0.2 (0.0-0.7); EOS % 2.5 % (0-4.0); GRAN % 68.6 % (42.2-75.2); HEMOGLOBIN 10.7 g/dl (12.5-16.0); LYMPH # 1.4 (1.2-3.4); MEAN CELL VOLUME 87 fl (80.0-100.0); MEAN CORPUSCULAR HEMOGLOBIN 29 pg (27.0-31.0); MEAN CORPUSCULAR HGB CONC 33 g/dl (33.0-37.0); MONO # 0.7 (0.1-0.6); PLATELET COUNT 324 K/mm3 (130-400); RED BLOOD COUNT 3.76 M/mm3 (4.10-5.30); REDCELL DISTRIBUTION WIDTH-CV 14.3 % (11.5-14.5)
[2020-11-12 09:57] LABS: HEMATOCRIT 32.7 % (37.0-47.0)
[2020-11-12 10:09] LABS: ALANINE AMINOTRANSFERASE 12 U/L (4-34); ALBUMIN 3.4 gm/dL (3.5-5.0); ALKALINE PHOSPHATASE 40 U/L (50-136); ANION GAP 8 mmol/L (7-16); AST,SGOT 20 U/L (15-37); BILIRUBIN,TOTAL 0.3 mg/dL (0.0-1.0); BLOOD UREA NITROGEN 20 mg/dL (7-17); C-REACTIVE PROTEIN < 0.5 mg/dL (0.0-0.9); CALCIUM 8.7 mg/dL (8.4-10.2); CARBON DIOXIDE 22 mmol/L (22-30); CHLORIDE 108 mmol/L (98-107); CREATININE, serum 0.82 (0.52-1.25); GLUCOSE 89 mg/dL (74-106); POTASSIUM 3.7 mmol/L (3.4-5.0); SODIUM 137 mmol/L (137-145); TOTAL PROTEIN 6.2 gm/dL (6.4-8.2)
[2020-11-12 10:19] LABS: TROPONIN-I < 0.012 ng/mL (0.000-0.035)
[2020-11-12 10:22] LABS: COLLECTION METHOD CLEAN CATCH
[2020-11-12 10:26] LABS: PH 6 (5-8); SQUAMOUS EPITHELIAL 0-2 /hpf; URINE APPEARANCE Clear; URINE BACTERIA Rare /hpf; URINE BILIRUBIN Negative (NEGATIVE); URINE BLOOD Negative (NEGATIVE); URINE COLOR Yellow; URINE GLUCOSE Negative (NEGATIVE); URINE KETONE Negative (NEGATIVE); URINE LEUKOCYTE ESTERASE Trace (NEGATIVE); URINE NITRATE Negative (NEGATIVE); URINE PROTEIN(semi-quant) Negative (NEGATIVE); URINE RBC 0-2 /hpf; URINE UROBILINOGEN Negative (NEGATIVE)
[2020-11-12 10:44] VITALS: BP 127/64; PULSE 61
== END 2020-11-12 10:55 | disposition home or self-care (01) ==
LOC: COL.ER 09:00
PROVIDERS: Family Medicine
DX: E86.0 Dehydration (principal); R00.1 Bradycardia, unspecified; Z88.1 Allergy status to other antibiotic agents; Z88.8 Allergy status to other drugs, medicaments and biological substances; Z95.5 Presence of coronary angioplasty implant and graft; Z79.4 Long term (current) use of insulin; Z79.82 Long term (current) use of aspirin
CPT/HCPCS: J7030

== ENCOUNTER → 2020-11-27 | Outpatient (CLI) | payer MEDICARE, BC | LOC: ZCOL.LAB 13:24 | DX: Z01.812 Encounter for preprocedural laboratory examination (principal); Z20.822 Contact with and (suspected) exposure to COVID-19 ==

== ENCOUNTER 2021-01-27 15:44 | Outpatient (RCR) | payer MEDICARE, BC | END 2021-01-28 | disposition home or self-care (01) | LOC: COL.CR | DX: Z48.812 Encounter for surgical aftercare following surgery on the circulatory system (principal); Z95.5 Presence of coronary angioplasty implant and graft ==

== ENCOUNTER 2021-03-10 15:23 | Outpatient (RCR) | payer MEDICARE, BC | END 2021-04-29 | disposition home or self-care (01) | LOC: COL.CR | DX: Z48.812 Encounter for surgical aftercare following surgery on the circulatory system (principal); Z95.5 Presence of coronary angioplasty implant and graft ==

== ENCOUNTER 2021-08-30 16:32 | Emergency (ER) | payer MEDICARE, BC ==
[~2021-08-30] VITALS: Ht 162.6 cm; Wt 89.1 kg
[2021-08-30 17:04] VITALS: TEMP 97.4
[2021-08-30 18:45] LABS: BASO % 0.3 % (0.0-2.0); EOS # 0.3 K/mm3 (0.0-0.7); EOS % 3.8 % (0.0-4.0); GRAN # 6.2 K/mm3 (1.4-6.5); GRAN % 69.1 % (42.2-75.2); LYMPH # 1.7 K/mm3 (1.2-3.4); LYMPH % 19.1 % (20.0-51.0); MEAN CELL VOLUME 88 fl (80.0-100.0); MEAN CORPUSCULAR HEMOGLOBIN 29 pg (27-31); MEAN CORPUSCULAR HGB CONC 33 g/dl (33.0-37.0); MEAN PLATELET VOLUME 10.1 fl (7.4-10.4); MONO # 0.7 K/mm3 (0.1-0.6); MONO % 7.3 % (1.7-9.3); PLATELET COUNT 308 K/mm3 (130-400); RED BLOOD COUNT 4.14 M/mm3 (4.10-5.30); REDCELL DISTRIBUTION WIDTH-CV 14.5 % (11.5-14.5)
[2021-08-30 18:53] LABS: PARTIAL THROMBOPLASTIN TIME 32.8 SECONDS (26.0-37.0)
[2021-08-30 19:00] LABS: ALANINE AMINOTRANSFERASE 9 U/L (0-55); ALBUMIN 3.7 gm/dL (3.4-4.8); ALKALINE PHOSPHATASE 59 U/L (40-150); ANION GAP 12 mmol/L (7-16); AST,SGOT 10 U/L (5-34); BILIRUBIN,TOTAL 0.3 mg/dL (0.2-1.2); BLOOD UREA NITROGEN 19 mg/dL (10-20); CALCIUM 9.2 mg/dL (8.4-10.2); CARBON DIOXIDE 18 mmol/L (23-31); CHLORIDE 107 mmol/L (98-107); CREATININE, serum 0.83 mg/dL (0.57-1.11); GLUCOSE 150 mg/dL (70-99); POTASSIUM 4.2 mmol/L (3.5-4.5); SODIUM 137 mmol/L (136-145); TOTAL PROTEIN 6.6 gm/dL (6.2-8.1)
[2021-08-30 19:03] LABS: HEMATOCRIT 36.3 % (37.0-47.0)
[2021-08-30 19:10] LABS: TROPONIN-I < 0.010 ng/mL (0.00-0.033)
[2021-08-30 20:29] VITALS: BP 156/76; PULSE 63
== END 2021-08-30 20:38 | disposition home or self-care (01) ==
LOC: COL.ER 16:32
PROVIDERS: Emergency Medicine
DX: R07.89 Other chest pain (principal); E78.5 Hyperlipidemia, unspecified; I25.10 Atherosclerotic heart disease of native coronary artery without angina pectoris; I11.0 Hypertensive heart disease with heart failure; I50.33 Acute on chronic diastolic (congestive) heart failure; E11.9 Type 2 diabetes mellitus without complications; E03.9 Hypothyroidism, unspecified; Z79.899 Other long term (current) drug therapy; Z79.890 Hormone replacement therapy; Z79.4 Long term (current) use of insulin; Z79.84 Long term (current) use of oral hypoglycemic drugs; Z79.82 Long term (current) use of aspirin; Z20.822 Contact with and (suspected) exposure to COVID-19

== ENCOUNTER 2021-10-26 09:56 | Observation (INO) | payer MEDICARE, BC ==
[~2021-10-26] VITALS: Ht 162.6 cm; Wt 90.9 kg
[2021-10-26 10:28] LABS: BASO # 0.1 K/mm3 (0.0-0.2); BASO % 0.6 % (0.0-2.0); EOS # 0.3 K/mm3 (0.0-0.7); EOS % 3.4 % (0.0-4.0); GRAN # 5.5 K/mm3 (1.4-6.5); GRAN % 68.8 % (42.2-75.2); HEMATOCRIT 35.1 % (37.0-47.0); LYMPH # 1.4 K/mm3 (1.2-3.4); LYMPH % 17.4 % (20.0-51.0); MEAN CELL VOLUME 86 fl (80.0-100.0); MEAN CORPUSCULAR HEMOGLOBIN 30 pg (27-31); MEAN CORPUSCULAR HGB CONC 34 g/dl (33.0-37.0); MEAN PLATELET VOLUME 10.3 fl (7.4-10.4); MONO # 0.7 K/mm3 (0.1-0.6); MONO % 9.3 % (1.7-9.3); PLATELET COUNT 319 K/mm3 (130-400); RED BLOOD COUNT 4.07 M/mm3 (4.10-5.30)
[2021-10-26 11:03] LABS: INR 1.1 (0.8-3.0)
[2021-10-26 11:12] LABS: ALANINE AMINOTRANSFERASE 9 U/L (0-55); ALBUMIN 3.4 gm/dL (3.4-4.8); ALKALINE PHOSPHATASE 47 U/L (40-150); AST,SGOT 9 U/L (5-34); BILIRUBIN,TOTAL 0.5 mg/dL (0.2-1.2); BLOOD UREA NITROGEN 23 mg/dL (10-20); CALCIUM 9.1 mg/dL (8.4-10.2); CARBON DIOXIDE 22 mmol/L (23-31); CHLORIDE 109 mmol/L (98-107); CREATININE, serum 0.85 mg/dL (0.57-1.11); GLUCOSE 125 mg/dL (70-99); LIPASE 27 U/L (8-78); POTASSIUM 4.5 mmol/L (3.5-4.5); SODIUM 140 mmol/L (136-145); TOTAL PROTEIN 6.1 gm/dL (6.2-8.1)
[2021-10-26 11:14] LABS: ANION GAP 9 mmol/L (7-16)
[2021-10-26 11:18] LABS: TROPONIN-I < 0.010 ng/mL (0.00-0.033)
[2021-10-26] MEDS ORDERED: IMDUR 30MG30 MG/TAB PO (12:07)
[2021-10-26] MEDS ORDERED: LEXAPRO 10MG10 MG PO (12:13)
[2021-10-26] MEDS ORDERED: NITROSTAT0.3 MG SL (12:15)
[2021-10-26 12:29] LABS: PARTIAL THROMBOPLASTIN TIME 32.1 SECONDS (26.0-37.0)
[2021-10-26 15:32] VITALS: BP 149/55; PULSE 52; TEMP 98.2
--- NOTE | 2021-10-26 16:02 | NUR ---
Admission assessment completed, alert/oriented, vital signs stable, denies any further chest pain or discomfort at this time, heart RRR/ SR on tele, distal pulses are palpable, lungs CTA/ denies any resp.difficulty, continues on heparin gtt/ Cardiology saw patient in ER and plans for heart cath tommorow, home meds/pharmacy/allergies reviewed with patient, she denies needs, will cotninue to monitor
--- NOTE | 2021-10-26 19:33 | NUR ---
RECEIVED CHANGE OF SHIFT REPORT FROM DAY SHIFT RN. PATIENT RESTING IN BED WITH CURRENT NEEDS REPORTED AT TIME OF REPORT. SEE DOCUMENTATION OF PAUSING OF HEP DRIP WITH RESTART TO BE DONE AT 2019 ACCORDING TO HEP PROTOCOL WITH FOLLOW UP LABS TO BE DRAWN AROUND 99.
[2021-10-26 20:36] VITALS: BP 159/66; PULSE 56; TEMP 97.7
[2021-10-26 22:39] VITALS: BP 147/61; PULSE 57
--- NOTE | 2021-10-26 22:40 | NUR ---
PATIENT C/O CHEST TIGHTNESS LEVEL 4/10. DENIES SOA, NAUSEA.
[2021-10-26 22:55] VITALS: BP 101/52; PULSE 62
--- NOTE | 2021-10-26 22:56 | NUR ---
REPORTS CHEST TIGHTNESS LEVEL 2/10, REPORTS MORE UPPER BACK DISCOMFORT FROM LAYING ON BACK TOO LONG. SKIN WARM AND DRY.
[2021-10-27] VITALS (19 sets, daily range): BP systolic 102–140; BP diastolic 46–75; PULSE 50–58; TEMP 97.4–98.7
--- NOTE | 2021-10-27 00:08 | NUR ---
OBSERVED CLOT OBSTRUCTING END OF PREVIOUS INDWELLING CATHETER, PATIENT UNABLE TO VOID AND REINSERTED ANOTHER CATHETER
--- NOTE | 2021-10-27 02:42 | NUR ---
TELE REPORTS PATIENT IN [place] WITH PAC'S RATES IN 50's WITH 12 SEC RATE AT 39 THAT RETURNED TO SINUS DANA RATE 50's CURRENTLY.
[2021-10-27 06:22] LABS: BASO % 0.5 % (0.0-2.0); EOS # 0.3 K/mm3 (0.0-0.7); EOS % 3.6 % (0.0-4.0); GRAN # 5.6 K/mm3 (1.4-6.5); HEMOGLOBIN 11.7 g/dl (12.5-16.0); LYMPH # 1.8 K/mm3 (1.2-3.4); LYMPH % 21.5 % (20.0-51.0); MEAN CELL VOLUME 87 fl (80.0-100.0); MEAN CORPUSCULAR HEMOGLOBIN 29 pg (27-31); MEAN CORPUSCULAR HGB CONC 34 g/dl (33.0-37.0); MEAN PLATELET VOLUME 10.1 fl (7.4-10.4); MONO # 0.7 K/mm3 (0.1-0.6); MONO % 8.2 % (1.7-9.3); PLATELET COUNT 283 K/mm3 (130-400); RED BLOOD COUNT 3.98 M/mm3 (4.10-5.30); REDCELL DISTRIBUTION WIDTH-CV 13.7 % (11.5-14.5)
[2021-10-27 06:27] LABS: HEMATOCRIT 34.5 % (37.0-47.0)
[2021-10-27 06:44] LABS: CALCIUM 8.6 mg/dL (8.4-10.2); CREATININE, serum 0.73 mg/dL (0.57-1.11)
--- NOTE | 2021-10-27 07:20 | NUR ---
CHANGE OF SHIFT REPORT GIVEN TO DAY SHIFT RNADEN.
--- NOTE | 2021-10-27 08:28 | NUR ---
Pt assessment complete. Pt is laying in bed she is A/O x4. Her breathing is even and unlabored on RA. Pt denies SOB. No chest pain at this time. Reports "tightness" to her back, but denies need for intervention at this time. No N/V. POC discussed with patient, all questions answered at this time. Heparin infusing without issues. Call light within reach.
--- NOTE | 2021-10-27 11:24 | NUR ---
First visit from the flour broker. NO needs right now.
--- NOTE | 2021-10-27 11:44 | NUR ---
Social Work student met with patient to discuss discharge planning. Patient lives 5 miles outside of [place] with her , Mu(ph#[phone]), and her daughter, Nicole Sim. Patient sees Dr. Jackson for primary care, and receives her medications from [facility] with no cost difficulty. Patient utilizes a cane outside of her home and a walker within her home when needed. Patient states that she is independent with her ADL's. Patient does have a DPOA-HC on file listing her son, Radha)(ph#[phone]) as her primary agent. Patient states that she is comfortable discharging back home when ready. *Discharge plan: Home*
--- NOTE | 2021-10-27 12:51 | NUR ---
See merge for all assessment, intervention, medication, and vital sign times.
--- NOTE | 2021-10-27 16:29 | NUR ---
5MLS LET OUT FROM RADIAL BAND, NO BLEEDING INITIALLY. UPON RECHECK SMALL AMOUNT OF BLOOD PRESENT. REINFLATED ANOTHER 5MLS. WILL CONTINUE TO MONITOR.
--- NOTE | 2021-10-27 18:02 | NUR ---
Attempted to completely deflate TR band, small ooze present. Reinflated with 8cc. Will attempt again in 30 min.
--- NOTE | 2021-10-27 19:24 | NUR ---
Remainder of TR band released, bandaid placed to site. Wrist splint left in place. Hematoma site marked. No needs at this time.
--- NOTE | 2021-10-27 22:10 | NUR ---
Patient assessed around 2124. Alert and oriented x 4, and able to make needs known. Denies having pain and discomfort at this time. Peripheral IV to right forearm, INT'd after post op fluids completed. Denies SOB and dyspnea. LS CTA. HRR-bradycardia. Telemetry in place. HR 52 at time of assessment. Held Metoprolol. BSAx4. Abdomen soft and non-tender. Right radial heart cath site with bandaid in place. Soft hematoma to area, light purple in color. Remains inside markings. Wearing arm board to right arm for protection of heart cath site. Voices no questions, needs, or concerns at this time. In bed with call light within reach.
[2021-10-28 04:39] VITALS: BP 136/56; PULSE 53; TEMP 97.9
--- NOTE | 2021-10-28 05:58 | NUR ---
Patient has denied having pain and discomfort this shift. Hematoma to right radial heart cath site resolving, soft. Patient has remained sinus reba on telemetry throughout most of the night with heart rate in the 50s. Did not take Metoprolol at HS. Voices no questions, needs, or concerns at this time. In bed with call light within reach.
[2021-10-28 06:35] LABS: BASO % 0.4 % (0.0-2.0); EOS # 0.3 K/mm3 (0.0-0.7); EOS % 3.3 % (0.0-4.0); GRAN # 5.6 K/mm3 (1.4-6.5); GRAN % 68.6 % (42.2-75.2); HEMOGLOBIN 11.5 g/dl (12.5-16.0); LYMPH # 1.4 K/mm3 (1.2-3.4); LYMPH % 16.7 % (20.0-51.0); MEAN CELL VOLUME 88 fl (80.0-100.0); MEAN CORPUSCULAR HEMOGLOBIN 29 pg (27-31); MEAN CORPUSCULAR HGB CONC 34 g/dl (33.0-37.0); MEAN PLATELET VOLUME 10.4 fl (7.4-10.4); MONO # 0.9 K/mm3 (0.1-0.6); MONO % 10.6 % (1.7-9.3); PLATELET COUNT 269 K/mm3 (130-400); RED BLOOD COUNT 3.91 M/mm3 (4.10-5.30); REDCELL DISTRIBUTION WIDTH-CV 14.1 % (11.5-14.5)
[2021-10-28 06:47] LABS: HEMATOCRIT 34.3 % (37.0-47.0)
[2021-10-28 06:50] LABS: CALCIUM 8.7 mg/dL (8.4-10.2); CREATININE, serum 0.79 mg/dL (0.57-1.11)
[2021-10-28 08:29] VITALS: BP 120/58; PULSE 56; TEMP 98
--- NOTE | 2021-10-28 09:25 | NUR ---
Patient sitting on edge of bed, working w/ PT upon entering the room. Patient is very pleasant and denies any concerns. Hematoma on right wrist is soft and non-tender. Patient is hopeful to discharge. Awaiting orders from cardiology.
[2021-10-28 12:07] VITALS: BP 117/60; PULSE 54; TEMP 97.9
--- NOTE | 2021-10-28 14:10 | NUR ---
Patient discharged home. All discharge education and instructions provided by this RN. Patient verbalized understanding and signed forms. IV and telemetry were removed by this RN. Patient escorted out via wheelchair by this RN. Patient had no concerns at the time of discharge.
== END 2021-10-28 14:00 | disposition home or self-care (01) ==
LOC: COL.ER 09:56 → MEDICAL 12:23
PROVIDERS: Family Medicine; Nurse Practitioner Primary Care; Physician Assistant; ADMIT Student in an Organized Health Care Education/Training Program
DX: I25.110 Atherosclerotic heart disease of native coronary artery with unstable angina pectoris (principal); I10 Essential (primary) hypertension; E78.5 Hyperlipidemia, unspecified; E11.9 Type 2 diabetes mellitus without complications; Z79.899 Other long term (current) drug therapy; Z79.82 Long term (current) use of aspirin; Z79.84 Long term (current) use of oral hypoglycemic drugs; Z79.01 Long term (current) use of anticoagulants
CPT/HCPCS: C1725; C1769; C1874; C1887; C9600; G0378; J0583; J1644; J1815; J2250; J3010

== ENCOUNTER 2022-08-11 14:10 | Outpatient (RCR) | payer MEDICARE, BC ==
[~2022-08-11 14:10] MED LIST changes: +CYMBALTA 30MG30 MG PO; +LEXAPRO 10MG10 MG PO; +LYRICA 25MG CAP25 MG PO; +NITROSTAT0.3 MG SL
== END 2022-08-16 | disposition home or self-care (01) ==
LOC: COL.CR
DX: Z48.812 Encounter for surgical aftercare following surgery on the circulatory system (principal); Z95.5 Presence of coronary angioplasty implant and graft

== ENCOUNTER 2022-08-23 15:32 | Outpatient (RCR) | payer MEDICARE, BC | END 2022-08-25 16:14 | disposition home or self-care (01) | LOC: COL.CR 15:32 | DX: Z48.812 Encounter for surgical aftercare following surgery on the circulatory system (principal); Z95.5 Presence of coronary angioplasty implant and graft ==

== ENCOUNTER → 2023-04-03 | Outpatient (CLI) | payer MEDICARE, BC | LOC: MHCPAIN 09:58 | DX: M47.816 Spondylosis without myelopathy or radiculopathy, lumbar region (principal); M54.50 Low back pain, unspecified | CPT/HCPCS: J0665 ==